=== PATIENT | male | born 1970 | race Caucasian/White ===

== ENCOUNTER 2017-09-07 18:39 | Inpatient (IN) | payer MEDICAID, OTHER ==
[2017-09-07] VITALS (8 sets, daily range): BP systolic 109–141; BP diastolic 67–86
[~2017-09-07] VITALS: Ht 180.3 cm; Wt 114.3 kg
[2017-09-07] MEDS ORDERED: ONDANSETRON HCL 4 MG/2 ML VIAL ONE (18:45)
[2017-09-07] MEDS ORDERED: MORPHINE SULFATE 4 MG/ML SYR/VIAL ONE (18:45)
[2017-09-07] MEDS ORDERED: ONDANSETRON HCL 4 MG/2 ML VIAL IV ONE (19:00)
[2017-09-07] MEDS ORDERED: ASPirin 81 mg TAB PO ONE (19:00)
[2017-09-07 19:10] LABS: Basophils # (auto) 0.1 uL; Basophils % (auto) 0.6 % (0.0-2.0); Eosinophils # (auto) 0.2 uL; Eosinophils % (auto) 1.8 % (0.0-7.0); Hematocrit 44.7 % (41.0-53.0); Hemoglobin 15.4 g/dL (13.5-17.5); Lymphocytes # (auto) 2.2 uL; Lymphocytes % (auto) 23.3 % (10.0-50.0); Mean Corpuscular Hemoglobin 31.2 pg (28.0-32.0); Mean Corpuscular Hgb Conc. 34.5 g/dL (32.0-36.0); Mean Corpuscular Volume 90.6 fL (80.0-100.0); Monocytes # (auto) 0.6 uL; Monocytes % (auto) 6.6 % (0.0-12.0); Neutrophils # (auto) 6.5 uL; Neutrophils % (auto) 67.7 % (37.0-80.0); Nucleated Red Blood Cells % 0.1 %; Platelet Count (auto) 204 10^3/uL (140-450); Red Blood Cells 4.93 10^6/uL (4.5-5.90); White Blood Cell 9.5 10^3/uL (4.4-10.8)
[2017-09-07] MEDS ORDERED: LIDOCAINE 2%HCL (LOCAL ANESTH.) INJ 10ml MDV ONE (19:16)
[2017-09-07] MEDS ORDERED: IODIXANOL 320MG/ML 100ML BTL IV ONE (19:16)
[2017-09-07] MEDS ORDERED: ANGIOMAX 250 MG VIAL IV ONE ×2 (19:17→19:42)
[2017-09-07] MEDS ORDERED: fentaNYL CITRATE 100 MCG/2 ML VL ONE (19:18)
[2017-09-07] MEDS ORDERED: EPINEPHrine HCL 1 MG/10 ML SYRG ONE (19:18)
[2017-09-07] MEDS ORDERED: EPTIFIBATIDE INJ (2MG/ML) 10ML VIAL IV ONE (19:18)
[2017-09-07] MEDS ORDERED: MIDAZOLAM HCL 1MG/1ML-2 ML VIAL ONE (19:18)
[2017-09-07] MEDS ORDERED: ATROPINE SULF 1 MG/10ml SYR ONE (19:18)
[2017-09-07] MEDS ORDERED: SODIUM CHL 0.9% 50 ML ONE ×2 (19:18→19:42)
[2017-09-07] MEDS ORDERED: EPTIFIBATIDE DRIP(0.75MG/ML) 0 ML IV ONE (19:19)
[2017-09-07 19:31] LABS: INR 0.88 (0.9-1.15); Partial Thromboplastin Time 26.1 sec (23.78-33.04); Prothrombin Time 9.5 sec (9.27-12.13)
[2017-09-07 19:43] LABS: Albumin 3.5 g/dL (3.4-5.0); BUN/Creatinine Ratio 9.3; Bilirubin, Total 0.5 mg/dL (0.2-1.0); Calcium 7.9 mg/dL (8.5-10.1); Potassium 3.5 mmol/L (3.5-5.1); Total Protein 7.8 g/dL (6.4-8.2)
[2017-09-07] MEDS ORDERED: TICAGRELOR 90 MG TAB ONE (19:59)
[2017-09-07] MEDS ORDERED: ACETAMINOPHEN 500 MG TAB PO PRN (20:15)
[2017-09-07] MEDS ORDERED: LORazepam 0.5 MG TAB PO PRN (20:15)
[2017-09-07] MEDS ORDERED: NITROGLYCERIN 0.4 MG SL TAB SL PRN (20:15)
[2017-09-07] MEDS ORDERED: MORPHINE SULFATE 4 MG/ML SYR/VIAL IV PRN ×2 (20:15)
[2017-09-07] MEDS ORDERED: ONDANSETRON HCL 4 MG/2 ML VIAL IV PRN (20:15)
[2017-09-07] MEDS: SODIUM CHLORIDE 0.9% 1,000 ML IV SCH (20:45)
[2017-09-07] MEDS ORDERED: METOPROLOL TARTRATE 25 MG TAB PO ONE (20:45)
[2017-09-07] MEDS: ATORVASTATIN 20 MG TAB PO SCH (23:08)
[2017-09-08] VITALS (12 sets, daily range): BP systolic 107–137; BP diastolic 61–94
[2017-09-08] MEDS: HYDROcodone-ACET 5/325MG TAB PO PRN ×2 (03:14→14:20)
[2017-09-08] MEDS ORDERED: OME20GT PO (04:52)
[2017-09-08 05:43] LABS: Basophils # (auto) 0 uL; Basophils % (auto) 0.2 % (0.0-2.0); Eosinophils # (auto) 0.2 uL; Eosinophils % (auto) 1.8 % (0.0-7.0); Hematocrit 45.4 % (41.0-53.0); Hemoglobin 15.1 g/dL (13.5-17.5); Lymphocytes # (auto) 2.3 uL; Lymphocytes % (auto) 22.3 % (10.0-50.0); Mean Corpuscular Hemoglobin 30.4 pg (28.0-32.0); Mean Corpuscular Hgb Conc. 33.3 g/dL (32.0-36.0); Mean Corpuscular Volume 91.3 fL (80.0-100.0); Monocytes # (auto) 0.8 uL; Monocytes % (auto) 7.4 % (0.0-12.0); Neutrophils % (auto) 68.3 % (37.0-80.0); Nucleated Red Blood Cells % 0.1 %; Platelet Count (auto) 215 10^3/uL (140-450); Red Blood Cells 4.98 10^6/uL (4.5-5.90); Red Cell Distribution Width 14.6 % (11.8-14.3); White Blood Cell 10.3 10^3/uL (4.4-10.8)
[2017-09-08 05:56] LABS: Calcium 7.5 mg/dL (8.5-10.1); Potassium 3.7 mmol/L (3.5-5.1)
[2017-09-08] MEDS: TICAGRELOR 90 MG TAB PO SCH ×2 (09:58→21:31)
[2017-09-08] MEDS: ASPirin 81 mg TAB PO SCH (09:58)
[2017-09-08] MEDS: SODIUM CHLORIDE 0.9% 1,000 ML IV SCH ×2 (09:59→23:25)
[2017-09-08] MEDS ORDERED: OPTISON 3ml Vial for INJ IV ONE (12:22)
[2017-09-08 13:48] LABS: Alcohol, Urine < 3.0 mg/dL (0-5); Amphetamine Screen, Urine POSITIVE (NEGATIVE); Barbiturate Scree,Urine NEGATIVE (NEGATIVE); Benzodiazephine Screen, Urine POSITIVE (NEGATIVE); Cannabinoid Screen, Urine NEGATIVE (NEGATIVE); Cocaine Screen, Urine NEGATIVE (NEGATIVE); Opiate Scree,Urine POSITIVE (NEGATIVE); Phencyclidine Screen, Urine NEGATIVE (NEGATIVE)
[2017-09-08] MEDS ORDERED: IOHEXOL 350 MG/ML 100ML IJ ONE (14:55)
[2017-09-08] MEDS: ATORVASTATIN 20 MG TAB PO SCH (21:31)
[2017-09-08 22:59] LABS: BUN/Creatinine Ratio 14.3; Calcium 7.4 mg/dL (8.5-10.1); Magnesium 2.4 mg/dL (1.6-2.6); Phosphorus 1.9 mg/dL (2.5-4.90); Potassium 3.7 mmol/L (3.5-5.1)
[2017-09-09] MEDS: SODIUM CHLORIDE 0.9% 1,000 ML IV SCH (00:49)
[2017-09-09] MEDS ORDERED: FUROSEMIDE INJECTION 10 ML ONE (00:59)
[2017-09-09] MEDS ORDERED: POTASSIUM CHL 20 Meq TABLET PO ONE ×2 (01:13→01:15)
[2017-09-09] MEDS ORDERED: FUROSEMIDE 100 MG/10ML VIAL IV ONE (01:30)
[2017-09-09 04:20] VITALS: BP 124/70
[2017-09-09 05:38] LABS: Basophils # (auto) 0 uL; Basophils % (auto) 0.4 % (0.0-2.0); Eosinophils # (auto) 0.2 uL; Hemoglobin 16.3 g/dL (13.5-17.5); Lymphocytes # (auto) 2.1 uL; Lymphocytes % (auto) 20.5 % (10.0-50.0); Mean Corpuscular Hemoglobin 31.4 pg (28.0-32.0); Mean Corpuscular Hgb Conc. 34.8 g/dL (32.0-36.0); Mean Corpuscular Volume 90.3 fL (80.0-100.0); Monocytes # (auto) 0.7 uL; Monocytes % (auto) 7.2 % (0.0-12.0); Neutrophils # (auto) 7.3 uL; Neutrophils % (auto) 69.9 % (37.0-80.0); Nucleated Red Blood Cells % 0.1 %; Platelet Count (auto) 208 10^3/uL (140-450); Red Cell Distribution Width 14.4 % (11.8-14.3); White Blood Cell 10.4 10^3/uL (4.4-10.8)
[2017-09-09 05:50] LABS: BUN/Creatinine Ratio 10.3; Calcium 8.1 mg/dL (8.5-10.1); Potassium 3.9 mmol/L (3.5-5.1)
[2017-09-09] MEDS ORDERED: METOPROLOL TARTRATE 25 MG TAB PO SCH (10:00)
[2017-09-09] MEDS: ASPirin 81 mg TAB PO SCH (11:06)
[2017-09-09] MEDS: TICAGRELOR 90 MG TAB PO SCH (11:06)
[2017-09-09 12:00] VITALS: BP 133/66
[2017-09-09 13:34] VITALS: BP 133/66
[2017-09-09 16:38] VITALS: BP 133/60
[2017-10-06] MEDS ORDERED: MORPHINE SULFATE 4 MG/ML SYR/VIAL IV ONE (14:45)
== END 2017-09-09 16:00 | DRG 247 ==
LOC: ER 18:39 → EDBD 18:39 → CATH 1 20:30 → ICU CENTRL 20:31 → DOU IN ICU 21:17
PROVIDERS: ADMIT Nurse Practitioner; ATTEND Specialist
PROC: 027034Z Dilation of Coronary Artery, One Artery with Drug-eluting Intraluminal Device, Percutaneous Approach (ICD-10-PCS; principal; 2017-09-07)
PROC: B41F1ZZ Fluoroscopy of Right Lower Extremity Arteries using Low Osmolar Contrast (ICD-10-PCS; 2017-09-07)
PROC: 4A023N7 Measurement of Cardiac Sampling and Pressure, Left Heart, Percutaneous Approach (ICD-10-PCS; 2017-09-07)
PROC: B2111ZZ Fluoroscopy of Multiple Coronary Arteries using Low Osmolar Contrast (ICD-10-PCS; 2017-09-07)
PROC: B2151ZZ Fluoroscopy of Left Heart using Low Osmolar Contrast (ICD-10-PCS; 2017-09-07)
DX: I21.19 ST elevation (STEMI) myocardial infarction involving other coronary artery of inferior wall (principal); E66.01 Morbid (severe) obesity due to excess calories; F15.90 Other stimulant use, unspecified, uncomplicated; I08.0 Rheumatic disorders of both mitral and aortic valves; I10 Essential (primary) hypertension; Z68.35 Body mass index [BMI] 35.0-35.9, adult; Z79.82 Long term (current) use of aspirin; Z79.899 Other long term (current) drug therapy; Z82.49 Family history of ischemic heart disease and other diseases of the circulatory system; Z87.891 Personal history of nicotine dependence
CPT/HCPCS: 36415; 71045; 75635; 75710; 80048; 80053; 80307; 83036; 83735; 84100; 84484; 85025; 85610; 85730; 87081; 92928; 93005; 93306; 93458; 94761; 96374; 96375; 99152; A6257; C1874; J2001; J2250; J2405; Q9956; Q9967

== ENCOUNTER 2021-12-28 05:50 | Emergency (ER) | payer BC, MEDICAID ==
[~2021-12-28] VITALS: Ht 172.7 cm; Wt 106.1 kg
[~2021-12-28 05:50] MED LIST: OME20GT PO
[2021-12-28 06:28] VITALS: BP 153/103
[2021-12-28 06:58] LABS: Basophils # (auto) 0 10 ^3/uL (0-0.2); Basophils % (auto) 0.6 % (0.0-2.0); Eosinophils # (auto) 0.3 10 ^3/uL (0-0.8); Eosinophils % (auto) 3.7 % (0.0-7.0); Hematocrit 44.9 % (41.0-53.0); Hemoglobin 15.1 g/dL (13.5-17.5); Lymphocytes # (auto) 1.9 10 ^3/uL (0.4-5.4); Lymphocytes % (auto) 23.6 % (10.0-50.0); Mean Corpuscular Hemoglobin 31.1 pg (28.0-32.0); Mean Corpuscular Hgb Conc. 33.7 g/dL (32.0-36.0); Mean Corpuscular Volume 92.5 fL (80.0-100.0); Monocytes # (auto) 0.5 10 ^3/uL (0-1.3); Monocytes % (auto) 6.2 % (0.0-12.0); Neutrophils # (auto) 5.2 10 ^3/uL (1.6-8.6); Neutrophils % (auto) 65.9 % (37.0-80.0); Nucleated Red Blood Cells % 0.1 %; Red Blood Cells 4.86 10^6/uL (4.5-5.90); Red Cell Distribution Width 13.4 % (11.8-14.3); White Blood Cell 7.9 10^3/uL (4.4-10.8)
[2021-12-28 07:20] LABS: Albumin 3.6 g/dL (3.4-5.0); BUN/Creatinine Ratio 12.7; Calcium 8.4 mg/dL (8.5-10.1); Potassium 3.8 mmol/L (3.5-5.1)
[2021-12-28 07:23] LABS: Bilirubin, Total 0.3 mg/dL (0.2-1.0)
[2021-12-28] MEDS ORDERED: HYDROcodone-ACET 10/325MG TAB PO ONE (10:00)
[2021-12-28] MEDS ORDERED: PANTOPRAZOLE 40 MG TAB PO ONE (10:00)
== END 2021-12-28 10:32 | disposition home or self-care (01) ==
LOC: ER 05:50
DX: M54.6 Pain in thoracic spine (principal); M79.10 Myalgia, unspecified site; F12.10 Cannabis abuse, uncomplicated; I25.2 Old myocardial infarction; I10 Essential (primary) hypertension; Z87.891 Personal history of nicotine dependence; Z98.61 Coronary angioplasty status
CPT/HCPCS: 36415; 71046; 74176; 80053; 84484; 85025; 93005

== ENCOUNTER 2022-01-01 16:03 | Emergency (ER) | payer BC ==
[~2022-01-01] VITALS: Ht 172.7 cm; Wt 105.0 kg
[2022-01-01] MEDS ORDERED: HYDROcodone-ACET 5/325MG TAB PO ONE (18:00)
[2022-01-01 18:34] LABS: Basophils # (auto) 0 10 ^3/uL (0-0.2); Basophils % (auto) 0.4 % (0.0-2.0); Eosinophils # (auto) 0.3 10 ^3/uL (0-0.8); Hematocrit 48.8 % (41.0-53.0); Hemoglobin 16.5 g/dL (13.5-17.5); Lymphocytes # (auto) 2.7 10 ^3/uL (0.4-5.4); Lymphocytes % (auto) 36.6 % (10.0-50.0); Mean Corpuscular Hemoglobin 31.3 pg (28.0-32.0); Mean Corpuscular Hgb Conc. 33.7 g/dL (32.0-36.0); Mean Corpuscular Volume 92.8 fL (80.0-100.0); Monocytes # (auto) 0.5 10 ^3/uL (0-1.3); Monocytes % (auto) 6.6 % (0.0-12.0); Neutrophils # (auto) 3.9 10 ^3/uL (1.6-8.6); Neutrophils % (auto) 52.4 % (37.0-80.0); Nucleated Red Blood Cells % 0.1 %; Red Blood Cells 5.26 10^6/uL (4.5-5.90); Red Cell Distribution Width 14.1 % (11.8-14.3); White Blood Cell 7.5 10^3/uL (4.4-10.8)
[2022-01-01 18:45] LABS: Albumin 3.5 g/dL (3.4-5.0); Calcium 8.7 mg/dL (8.5-10.1); Magnesium 2.1 mg/dL (1.6-2.6); Potassium 4.3 mmol/L (3.5-5.1)
[2022-01-01 18:56] LABS: Bilirubin, Total 0.4 mg/dL (0.2-1.0); Total Protein 7.3 g/dL (6.4-8.2)
[2022-01-01] MEDS ORDERED: IOHEXOL 300 MG/ML 100ML BOTTLE IJ ONE (18:56)
[2022-01-01 23:35] VITALS: BP 131/98
== END 2022-01-01 23:36 | disposition home or self-care (01) ==
LOC: ER 16:03
DX: K44.9 Diaphragmatic hernia without obstruction or gangrene (principal); K52.9 Noninfective gastroenteritis and colitis, unspecified; I10 Essential (primary) hypertension; I25.2 Old myocardial infarction; E78.5 Hyperlipidemia, unspecified; Z87.891 Personal history of nicotine dependence; Z79.899 Other long term (current) drug therapy
CPT/HCPCS: 36415; 71045; 74177; 76705; 80053; 83690; 83735; 83880; 84484; 85025; 93005; 99285; Q9967

== ENCOUNTER 2022-01-07 18:10 | Emergency (ER) | payer BC, MEDICAID ==
[~2022-01-07] VITALS: Ht 172.7 cm; Wt 104.0 kg
[2022-01-07 20:30] LABS: Basophils # (auto) 0 10 ^3/uL (0-0.2); Basophils % (auto) 0.4 % (0.0-2.0); Eosinophils # (auto) 0.2 10 ^3/uL (0-0.8); Eosinophils % (auto) 2.6 % (0.0-7.0); Hematocrit 48.3 % (41.0-53.0); Lymphocytes # (auto) 2.3 10 ^3/uL (0.4-5.4); Lymphocytes % (auto) 26.8 % (10.0-50.0); Mean Corpuscular Hemoglobin 30.6 pg (28.0-32.0); Mean Corpuscular Hgb Conc. 33.1 g/dL (32.0-36.0); Mean Corpuscular Volume 92.5 fL (80.0-100.0); Monocytes # (auto) 0.6 10 ^3/uL (0-1.3); Neutrophils # (auto) 5.5 10 ^3/uL (1.6-8.6); Neutrophils % (auto) 63.2 % (37.0-80.0); Nucleated Red Blood Cells % 0.1 %; Red Blood Cells 5.23 10^6/uL (4.5-5.90); Red Cell Distribution Width 13.7 % (11.8-14.3); White Blood Cell 8.6 10^3/uL (4.4-10.8)
[2022-01-07 20:41] LABS: Albumin 3.9 g/dL (3.4-5.0); Calcium 8.6 mg/dL (8.5-10.1); Potassium 3.8 mmol/L (3.5-5.1)
[2022-01-07 20:44] LABS: BUN/Creatinine Ratio 17.6; Bilirubin, Total 0.6 mg/dL (0.2-1.0); Total Protein 7.4 g/dL (6.4-8.2)
[2022-01-07 20:51] LABS: Urine Specific Gravity 1.028 (1.001-1.035)
[2022-01-07 20:52] LABS: Urine Blood Negative /uL (Negative)
[2022-01-08] MEDS ORDERED: PERCOT PO (06:44)
[2022-01-08] MEDS ORDERED: CIPR-173 PO (06:44)
[2022-01-08] MEDS ORDERED: METR500T PO (06:44)
[2022-01-08 08:10] VITALS: BP 157/98
== END 2022-01-08 08:40 | disposition left against medical advice (07) ==
LOC: ER 18:10
DX: R10.31 Right lower quadrant pain (principal); R19.7 Diarrhea, unspecified; E78.5 Hyperlipidemia, unspecified; I10 Essential (primary) hypertension; I25.2 Old myocardial infarction; F15.10 Other stimulant abuse, uncomplicated; Z87.891 Personal history of nicotine dependence; Z98.61 Coronary angioplasty status
CPT/HCPCS: 36415; 74176; 80053; 81003; 85025

== ENCOUNTER 2023-11-27 09:25 | Emergency (ER) | payer BC, MEDICAID ==
[~2023-11-27] VITALS: Ht 172.7 cm; Wt 98.0 kg
[~2023-11-27 09:25] MED LIST changes: +CIPR-173 PO; +METR500T PO; +PERCOT PO
[2023-11-27 10:06] VITALS: BP 133/88; PULSE 106; RESP 15; TEMP 98.8; O2SAT 97
[2023-11-27] MEDS ORDERED: NAPR-957 PO (10:34)
[2023-11-27] MEDS: HYDROcodone-ACET 5/325MG TAB PO ONE (10:35)
== END 2023-11-27 10:44 | disposition home or self-care (01) ==
LOC: ER 09:25
DX: S93.402A Sprain of unspecified ligament of left ankle, initial encounter (principal); E78.5 Hyperlipidemia, unspecified; I10 Essential (primary) hypertension; F15.90 Other stimulant use, unspecified, uncomplicated; Z79.899 Other long term (current) drug therapy; X58.XXXA Exposure to other specified factors, initial encounter; Y93.89 Activity, other specified; Y92.89 Other specified places as the place of occurrence of the external cause; Y99.8 Other external cause status
CPT/HCPCS: 73630

== ENCOUNTER 2024-01-17 18:58 | Emergency (ER) | payer BC ==
[~2024-01-17] VITALS: Ht 172.7 cm; Wt 100.6 kg
[~2024-01-17 18:58] MED LIST changes: +NAPR-957 PO
--- NOTE | 2024-01-17 20:21 | ED.PDOC ---
History of Present Illness HPI Comments 53-year-old male presents with a chief complaint of lower back pain and left hip pain x 5 days. Patient states that his pain is localized to his lower back and at his left hip. Patient mentions that it is painful to ambulate and apply weight to his left leg. Patient denies any falls or trauma and reports that he has had no incontinence or saddle anesthesia. No other symptoms or modifying factors present at this time. Time Seen by MD: 20:11 Primary Care Provider: NONE Reviewed Notes: Medications, Allergies Allergies: Coded Allergies: No Known Drug Allergy (Verified Allergy, Unknown, 09/07/17) Home Meds Active Scripts Naproxen (Naproxen) 375 Mg Tab, 1 TAB PO BIDPC for 14 Days, #28 TAB 0 Refills Prov:GARFIELD BAIRES DOUGH MACHINE OPERATOR 11/27/23 Oxycodone W/ Acetaminophen (Percocet 5/325MG) 1 Tab Tb, 1 TAB PO BID for 7 Days, #14 TAB Prov:ALFIE CRAIG MD 01/08/22 Ciprofloxacin Hcl (Cipro) 500 Mg Tab, 500 MG PO BID for 7 Days, #14 TAB Prov:ALFIE CRAIG MD 01/08/22 Metronidazole (Flagyl) 500 Mg Tab, 500 MG PO BID for 7 Days, #14 TAB Prov:ALFIE CRAIG MD 01/08/22 Reported Medications Omeprazole (Prilosec Susp (For Gt)) 20 Mg Ss, 20 MG PO DAILY 09/08/17 Information Source: Patient Mode of Arrival: Ambulatory Severity: Moderate Timing: Days Duration: Since onset Prehospital treatment: None Past Medical History PAST MEDICAL HISTORY: High Lipids, HTN, IN Surgical History: PTCA Family History Family History: Reviewed,noncontributory to illness, No family hx of Heart joseph, No family hx of HTN Social History Smoker: Quit Less Than 1 Year, Cigarettes, Less Than 1 Pack/Day Alcohol: Rarely Drugs: Methamphetamine Lives In: Home Constitutional: denies: chills, diaphoresis, fatigue, fever, malaise, sweats, weakness, others EENTM: denies: blurred vision, double vision, ear bleeding, ear discharge, ear drainage, ear pain, ear ringing, eye pain, eye redness, hearing loss, mouth pain, mouth swelling, nasal discharge, nose bleeding, nose congestion, nose pain, photophobia, tearing, throat pain, throat swelling, voice changes, others Respiratory: denies: cough, hemoptysis, orthopnea, SOB at rest, shortness of breath, SOB with excertion, stridor, wheezing, others Cardiovascular: denies: chest pain, dizzy spells, diaphoresis, Dyspnea on exertion, edema, irregular heart beat, left arm pain, lightheadedness, palpitations, PND, syncope, others Gastrointestinal: denies: abdomen distended, abdominal pain, blood streaked bowels, constipated, diarrhea, dysphagia, difficulty swallowing, hematemesis, melena, nausea, poor appetite, poor fluid intake, rectal bleeding, rectal pain, vomiting, others Genitourinary: denies: burning, dysuria, flank pain, frequency, hematuria, incontinence, penile discharge, penile sore, pain, testicle pain, testicle swelling, urgency, others Neurological: denies: dizziness, fainting, headache, left sided numbness, left sided weakness, numbness, paresthesia, pre-existing deficit, right sided numbness, right sided weakness, seizure, speech problems, tingling, tremors, weakness, others Musculoskeletal: reports: back pain; denies: gout, joint pain, joint swelling, muscle pain, muscle stiffness, neck pain, others Integumetry: denies: bruises, change in color, change in hair/nails, dryness, laceration, lesions, lumps, rash, wounds, others Allergic/Immunocompromised: denies: Difficulty Healing, Frequent Infections, Hives, Itching, others Hematologic/Lymphatic: denies: anemia, blood clots, easy bleeding, easy bruising, swollen glands, others Endocrine: denies: excessive hunger, excessive sweating, excessive thirst, excessive urination, flushing, intolerance to cold, intolerance to heat, unexplained weight gain, unexplained weight loss, others Psychiatric: denies: anxiety, bipolar disorder, depression, hopeless, panic disorder, schizophrenia, sleepless, suicidal, others All Other Systems: Reviewed and Negative Physical Exam General Appearance: No Apparent Distress, Normal HEENT: Normal ENT Inspection, Pharynx Normal, TMs Normal Neck: Full Range of Motion, Non-Tender, Normal, Normal Inspection Respiratory: Chest Non-Tender, Lungs Clear, No Accessory Muscle Use, No Respiratory Distress, Normal Breath Sounds Cardiovascular: No Edema, No JVD, No Murmur, No Gallop, Normal Peripheral Pulses, Regular Rate/Rhythm Breast Exam: Deferred Gastrointestinal: No Organomegaly, Non Tender, No Pulsatile Mass, Normal Bowel Sounds, Soft Genitalia: Deferred Pelvic: Deferred Rectal: Deferred Extremities: Decreased range of motion, Normal capillary refill, No pedal edema, Pelvis stable, Tender (LOWER BACK/LEFT HIP) Neurologic: Alert, sales person II-XII nml as Tested, No Motor Deficits, Normal Affect, Normal Mood, No Sensory Deficits Cerebellar Function: Normal Reflexes: Normal Skin: Dry, Normal Color, Warm Lymphatic: No Adenopathy Was a procedure done? Was a procedure done?: No Differential Dx Considerations may include: sciatica, lumbar fracture X-Ray, Labs, Meds, VS Vital Signs Date Time Temp Pulse Resp B/P (MAP) Pulse Ox O2 Delivery O2 Flow Rate FiO2 01/17/24 20:13 98.7 99 18 159/104 (122) 95 Current Medications Medications (Trade) Dose Ordered Sig/Estefania Route Start Time Stop Time Status Last Admin Acetaminophen (Tylenol Tablet) 650 mg ONCE ONCE PO 01/17/24 20:30 01/17/24 20:31 DC 01/17/24 20:38 Ketorolac Tromethamine (Toradol Injection) 15 mg ONCE ONCE IM 01/17/24 20:30 01/17/24 20:31 DC 01/17/24 20:38 Diazepam (Valium Tablet) 2 mg ONCE ONCE PO 01/17/24 20:30 01/17/24 20:31 DC 01/17/24 20:39 Time of 1ST Reevaluation: 20:41 Reevaluation 1ST: Unchanged Patient Education/Counseling: Diagnosis, Treatment, Prognosis Family Education/Counseling: No Family Present Departure 1 Departure Time of Disposition: 22:01 (Patient likely with sciatica. Will discharge with outpatient follow up. ) Impression: Primary Impression: Sciatica Qualified Codes: M54.32 - Sciatica, left side Disposition: HOME / SELF CARE / HOMELESS Condition: Stable Additional Instructions: You likely have sciatica. For pain you can take the followinam: Ibuprofen 400mg with food Noon: Acetaminophen 1000mg 4pm: Ibuprofen 400mg with food 8pm: Acetaminophen 1000mg You were also prescribed muscle relaxers. Please take as directed. You should follow up with your regular doctor within one week to ensure you are doing better. If your symptoms worsen or you have any other concerns then please return to the ER. e-Prescriptions Cyclobenzaprine HCl (Cyclobenzaprine Hydrochlo) 10 Mg Tab 10 MG PO TID PRN for 7 Days, #21 TAB Prov: BERTHA BELL MD 01/17/24 Discharged With: Self Critical Care Note Critical Care Time?: No Stability Stability form required: No I personally scribed for BERTHA BELL MD ([email or web address]) on 01/17/24 at 20:21. Electronically submitted by Dino Keith ([email or web address]). BERTHA BELL MD Jan 17, 2024 20:21
[2024-01-17] MEDS: KETOROLAC TROMETH 30 MG/ML 1ML VIAL IM ONE (20:38)
[2024-01-17] MEDS: ACETAMINOPHEN 325 MG TAB PO ONE (20:38)
[2024-01-17] MEDS: diazePAM 2 MG TAB PO ONE (20:39)
--- NOTE | 2024-01-17 20:56 | DVH ---
INDICATION: lower back pain COMPARISON: None TECHNIQUE: 2 views of the lumbar spine were obtained. FINDINGS: The lumbar vertebral alignment is normal. The intervertebral disc spaces are well-maintained. No significant facet arthropathy is noted. No acute fracture, vertebral compression deformity or aggressive osseous lesions. The paravertebral soft tissues are grossly unremarkable. IMPRESSION: No acute fracture.
[2024-01-17] MEDS ORDERED: CYCL-611 PO (22:04)
[2024-01-17] MEDS: HYDROcodone-ACET 5/325MG TAB PO ONE (23:17)
[2024-01-18 00:10] VITALS: BP 146/98; PULSE 98; RESP 19; O2SAT 98
== END 2024-01-18 00:14 | disposition home or self-care (01) ==
LOC: ER 18:58
DX: M54.42 Lumbago with sciatica, left side (principal); I10 Essential (primary) hypertension; E78.5 Hyperlipidemia, unspecified; Z79.899 Other long term (current) drug therapy; Z98.890 Other specified postprocedural states
CPT/HCPCS: 72100; 96372; 99284; J1885